=== PATIENT | male | born 1970 | race Caucasian/White ===

== ENCOUNTER 2020-11-06 01:27 | Emergency (ER) | payer OTHER, SELFPAY ==
[2020-11-06 01:35] VITALS: BP 143/89; PULSE 74; RESP 20; TEMP 36.6; O2SAT 97; BMI 32.5
[2020-11-06 02:09] LABS: Bacteria Urine None Seen; WBC Urine None Seen (0-5/HPF)
[2020-11-06 02:10] LABS: Appearance Urine UA CLEAR; Bilirubin Urine UA NEGATIVE (NEGATIVE); Color Urine UA YELLOW; Glucose Urine UA NEGATIVE (Negative); Ketones Urine UA 2+ (NEGATIVE); Leukocyte Esterase Urine UA NEGATIVE (NEGATIVE); Nitrite Urine UA NEGATIVE (Negative); Occult Blood Urine UA 3+ (Negative); Protein Urine UA TRACE (Negative); Specific Gravity Urine UA 1.015 (1.000-1.035); Urobilinogen Urine UA 0.2 E.U./dL (0.2)
[2020-11-06 02:15] LABS: Add Manual Diff / Slide Review NO; Basophils Absolute Auto 0 /uL (0-100); Basophils Percent Auto 0.2 % (0-2); Eosinophils Absolute Auto 0 /uL (0-450); Eosinophils Percent Auto 0.1 % (2-4); Hematocrit 44.8 % (41-53); Hemoglobin 15.4 g/dL (13.5-17.5); Lymphocytes Absolute Auto 800 /uL (1100-4500); Lymphocytes Percent Auto 8.5 % (25-40); Mean Corpuscular HGB Conc 34.4 % (30-36); Mean Corpuscular Hemoglobin 30.3 PG (26-34); Mean Corpuscular Volume 88.2 fL (80-100); Monocytes Absolute Auto 200 /uL (0-900); Monocytes Percent Auto 2.3 % (3-14); Neutrophils Absolute Auto 8400 /uL (1500-7000); Neutrophils Percent Auto 88.9 % (50-75); Platelet Count 269 X10^3/uL (150-400); Red Blood Cell Count 5.08 X10^6/uL (4.5-5.9); Red Cell Distribution Width 12.6 % (11.6-14.8); White Blood Cell Count 9.4 X10^3/uL (4.5-11.0)
[2020-11-06] MEDS: SODIUM CHLORIDE 0.9% 1,000 ML 1000 ML IV (02:16)
[2020-11-06] MEDS: HYDROMORPHONE 0.5 MG INJ IV (02:16)
[2020-11-06] MEDS: ONDANSETRON 4 MG/2 ML INJ IV (02:16)
[2020-11-06 02:22] LABS: Alanine Aminotransferase 56 IU/L (<50); Albumin Globulin Ratio 1.2 (1.0-2.8); Alkaline Phosphatase 75 U/L (38-126); Aspartate Aminotransferase 38 IU/L (17-59); BUN Creatinine Ratio 18.1 (6-22); Blood Urea Nitrogen 15 mg/dL (9-20); Calcium 10.1 mg/dL (8.4-10.2); Carbon Dioxide 26 mmol/L (22-32); Chloride 103 mmol/L (98-107); Estimated Glomerular Filt Rate > 60.0 mL/min (>60); Globulin 4.1 g/dL (1.7-4.1); Glucose 134 mg/dL (70-100); HEMOLYSIS < 15 (0-50); Lipase 79 U/L (23-300); Potassium 4.4 mmol/L (3.4-5.1); Sodium 139 mmol/L (137-145); Total Protein 9.1 g/dL (6.3-8.2)
[2020-11-06 02:30] LABS: Culture Indicated Urine Cult Not Indicated; RBC Urine 30-100/HPF (0-5/HPF)
[2020-11-06 02:33] LABS: COVID19 -Nasal RAPID Negative (Negative)
--- NOTE | 2020-11-06 05:14 | ED.ABDPAIN ---
HPI - Abdominal Pain General Chief Complaint: Abdominal Pain Stated Complaint: Believes he is having renal failure Time Seen by Provider: 11/06/20 02:21 Source: patient Mode of arrival: Ambulatory Limitations: no limitations History of Present Illness HPI narrative: 49-year-old gentleman with a history of prior acute renal failure presents with abdominal pain that initially felt like bloating secondary to gas than localized to the left flank and is now radiating down into the left groin. He denies any fevers, cough, chills, diarrhea, constipation. He has been nauseated with single episode of emesis. No chest pain, palpitations, dyspnea, headache or acute neurologic findings Related Data Home Medications Medication Instructions Recorded Confirmed omeprazole 20 mg capsule,delayed 20 mg PO QDAY #0 05/16/11 release melatonin 10 mg capsule 10 mg PO HSP PRN #0 04/20/17 Previous Rx's Medication Instructions Recorded clotrimazole-betamethasone 1 1 vitaliy TP TID #30 gm 09/09/ %-0.05 % topical cream oxycodone-acetaminophen 5 mg-325 1 - 2 tab PO Q6HP PRN #20 tab 04/20/17 mg tablet (Percocet) oxycodone-acetaminophen 5 mg-325 1 tab PO Q6H PRN #14 tab 11/06/20 mg tablet tamsulosin 0.4 mg capsule 0.4 mg PO DAILY #10 cap 11/06/20 Allergies Allergy/AdvReac Type Severity Reaction Status Date / Time ibuprofen [IBUPROFEN] AdvReac Severe RENAL Verified 11/06/20 01:35 FAILURE lactose [LACTOSE] AdvReac Intermediate Verified 11/06/20 01:35 Review of Systems Review of Systems Narrative: Remainder of complete review of systems is otherwise unremarkable except for that included in the HPI. Patient History Social History Smoking Status: Never smoker Smoking Status: Never smoker alcohol intake frequency: holidays/special occasions only Substance Use Type: marijuana Exam Narrative Exam Narrative: General: Healthy appearing, in moderate pain and unable to find a comfortable position.. Able to give a complete and coherent history. Well-nourished well-developed HEENT: Moist mucous membranes, normal sclera with reactive pupils, Respiratory: Lungs are clear to auscultation, no wheezing no rales no rhonchi. Full and symmetrical air movement Cardiac: Regular rate and rhythm no murmurs no bruits Abdomen: Soft, nontender, good bowel tones, left flank pain Skin: Warm and dry, no rashes Neurologic: Grossly neurologically intact with no obvious asymmetries or abnormalities Extremities: No trauma, well perfused Psych: Cooperative, appropriate insight and affect Initial Vital Signs Initial Vital Signs: Vital Signs Temperature 97.8 F 11/06/20 01:35 Pulse Rate 74 11/06/20 01:35 Respiratory Rate 20 11/06/20 01:35 Blood Pressure 143/89 H 11/06/20 01:35 Pulse Oximetry 97 11/06/20 01:35 Course Orders Ordered: ED Orders 11/06/20 01:45 COVID19 -Nasal swab/Pre-Proc Stat 11/06/20 01:50 Complete Blood Count AUTO DIFF Stat Comprehensive Metabolic Panel Stat Lipase Stat 11/06/20 02:05 Urinalysis and Microscopic Stat 11/06/20 05:21 CT kidney ureter bladder (KUB) Stat Discontinued Medications Hydromorphone HCl (Hydromorphone 0.5 Mg Inj) 0.5 mg IV NOW ONE Stop: 11/06/20 02:05 Last Admin: 11/06/20 02:16 Dose: 0.5 mg Documented by: YOBANI Sodium Chloride (Normal Saline 0.9%) 1,000 mls @ 1,000 mls/hr IV BOLUS ONE Stop: 11/06/20 03:03 Last Infusion: 11/06/20 04:21 Dose: 0 mls/hr Documented by: Admin: 11/06/20 02:16 Dose: 1,000 mls/hr Documented by: YOBANI Ketorolac Tromethamine (Ketorolac 30 Mg/Ml Vial) 15 mg IV NOW ONE Stop: 11/06/20 06:23 Ondansetron HCl (Ondansetron 4 Mg/2 Ml Inj) 4 mg IV NOW ONE Stop: 11/06/20 01:57 Last Admin: 11/06/20 02:16 Dose: 4 mg Documented by: YOBANI Oxycodone/Acetaminophen (Oxycodone/Apap 5/325 Prepack) 1 bottle MISC SEEINSTR ONE Stop: 11/06/20 06:26 Tamsulosin HCl (Tamsulosin 0.4 Mg Capsule) 0.4 mg PO NOW ONE Stop: 11/06/20 06:26 Vital Signs Vital signs: Vital Signs - 8 hr 11/06/20 01:35 Temperature 97.8 F Pulse Rate 74 Respiratory Rate 20 Blood Pressure 143/89 H Pulse Oximetry 97 MDM - Abdominal Pain Lab Data Result diagrams: 11/06/20 01:50 11/06/20 01:50 Labs: Lab Results 11/06/20 11/06/20 11/06/20 Range/Units 01:45 01:50 01:50 WBC 9.4 (4.5-11.0) X10^3/uL RBC 5.08 (4.5-5.9) X10^6/uL Hgb 15.4 (13.5-17.5) g/dL Hct 44.8 (41-53) % MCV 88.2 (80-100) fL MCH 30.3 (26-34) PG MCHC 34.4 (30-36) % RDW 12.6 (11.6-14.8) % Plt Count 269 (150-400) X10^3/uL Neut % (Auto) 88.9 H (50-75) % Lymph % (Auto) 8.5 L (25-40) % [place] % (Auto) 2.3 L (3-14) % Eos % (Auto) 0.1 L (2-4) % Baso % (Auto) 0.2 (0-2) % Neut # (Auto) 8400 H (3082-5442) /uL Lymph # (Auto) 800 L (4949-1454) /uL [place] # (Auto) 200 (0-900) /uL Eos # (Auto) 0 (0-450) /uL Baso # (Auto) 0 (0-100) /uL Sodium 139 (137-145) mmol/L Potassium 4.4 (3.4-5.1) mmol/L Chloride 103 (98-107) mmol/L Carbon Dioxide 26 (22-32) mmol/L BUN 15 (9-20) mg/dL Creatinine 0.83 (0.66-1.25) mg/dL Estimated GFR > 60.0 (>60) mL/min BUN/Creatinine Ratio 18.1 (6-22) Glucose 134 H (70-100) mg/dL Calcium 10.1 (8.4-10.2) mg/dL Total Bilirubin 1.0 (0.2-1.3) mg/dL AST 38 (17-59) IU/L ALT 56 H (<50) IU/L Alkaline Phosphatase 75 (38-126) U/L Total Protein 9.1 H (6.3-8.2) g/dL Albumin 5.0 (3.5-5.0) g/dL Globulin 4.1 (1.7-4.1) g/dL Albumin/Globulin Ratio 1.2 (1.0-2.8) Lipase 79 (23-300) U/L Urine Color Urine Appearance Urine pH (4.5-8.0) Ur Specific [place] (1.000-1.035) Urine Protein (Negative) Urine Glucose (UA) (Negative) g/dL Urine Ketones (NEGATIVE) Urine Occult Blood (Negative) Urine Nitrate (Negative) Urine Bilirubin (NEGATIVE) Urine Urobilinogen (0.2) E.U./dL Ur Leukocyte Esterase (NEGATIVE) Urine RBC (0-5/HPF) Urine WBC (0-5/HPF) Urine Bacteria (None) Ur Culture Indicated? SARS-CoV-2 (PCR) Negative (Negative) 11/06/20 Range/Units 02:05 WBC (4.5-11.0) X10^3/uL RBC (4.5-5.9) X10^6/uL Hgb (13.5-17.5) g/dL Hct (41-53) % MCV (80-100) fL MCH (26-34) PG MCHC (30-36) % RDW (11.6-14.8) % Plt Count (150-400) X10^3/uL Neut % (Auto) (50-75) % Lymph % (Auto) (25-40) % [place] % (Auto) (3-14) % Eos % (Auto) (2-4) % Baso % (Auto) (0-2) % Neut # (Auto) (1163-5501) /uL Lymph # (Auto) (0601-2126) /uL [place] # (Auto) (0-900) /uL Eos # (Auto) (0-450) /uL Baso # (Auto) (0-100) /uL Sodium (137-145) mmol/L Potassium (3.4-5.1) mmol/L Chloride (98-107) mmol/L Carbon Dioxide (22-32) mmol/L BUN (9-20) mg/dL Creatinine (0.66-1.25) mg/dL Estimated GFR (>60) mL/min BUN/Creatinine Ratio (6-22) Glucose (70-100) mg/dL Calcium (8.4-10.2) mg/dL Total Bilirubin (0.2-1.3) mg/dL AST (17-59) IU/L ALT (<50) IU/L Alkaline Phosphatase (38-126) U/L Total Protein (6.3-8.2) g/dL Albumin (3.5-5.0) g/dL Globulin (1.7-4.1) g/dL Albumin/Globulin Ratio (1.0-2.8) Lipase (23-300) U/L Urine Color Yellow Urine Appearance Clear Urine pH 7.0 (4.5-8.0) Ur Specific [place] 1.015 (1.000-1.035) Urine Protein Trace H (Negative) Urine Glucose (UA) Negative (Negative) g/dL Urine Ketones 2+ H (NEGATIVE) Urine Occult Blood 3+ H (Negative) Urine Nitrate Negative (Negative) Urine Bilirubin Negative (NEGATIVE) Urine Urobilinogen 0.2 (0.2) E.U./dL Ur Leukocyte Esterase Negative (NEGATIVE) Urine RBC 30-100/hpf H (0-5/HPF) Urine WBC None seen (0-5/HPF) Urine Bacteria None seen (None) Ur Culture Indicated? Cult not indicated SARS-CoV-2 (PCR) (Negative) Imaging Data CT KUB: Radiologist's Impression: 2 mm calculus within the distal left ureter associated with mild left hydronephrosis. Nonobstructing left renal calculi are identified as well. Left basilar pulmonary nodule. Right inguinal and umbilical hernias. Prasanth Ty MD MDM Narrative Medical decision making narrative: 49-year-old gentleman presents with left flank pain and corresponding 2 mm calculus in the left distal ureter appreciated on CT KUB. He responded nicely to fluids, Zofran and half a mg of Dilaudid. Once renal function was confirmed to be normal he was then given Toradol with significant relief. No evidence of recurrent renal abnormalities. Incidentally noted 5 mm nodule at the left lung base. He is given dose of Flomax with a prescription to continue until he passes this 2 mm stone. Pain is adequately controlled at this time. There is no evidence of infection, appendicitis, diverticulitis or other intra-abdominal abnormalities. Patient is safe for home discharge Discharge Plan Departure Patient Disposition: Home Clinical Impression: Left nephrolithiasis Instructions: DI for Kidney Stones Activity Restrictions/Additional Instructions: Thank you for coming in today You have a 2 mm kidney stone on the left side that is partially blocking your ureter, the 2 between your kidney and your bladder. This is the source of your pain. Using 400 mg of ibuprofen (2 [id number] pills) and 1 Tylenol every 6 hours can be very helpful in controlling pain. For severe pain using to ibuprofen and 1-2 Percocet would be appropriate. For nausea you can use Zofran Please strain your urine and take 0.4 mg of tamsulosin/Flomax daily until you note the kidney stone coming out. After it has passed, you no longer need the Flomax. If you have any signs of infection, pain that is uncontrolled with oral pain medications or new symptoms, please return to the ER Prescriptions: New tamsulosin 0.4 mg capsule 0.4 mg PO DAILY Qty: 10 RF: 0 oxycodone-acetaminophen 5-325 mg tablet 1 tab PO Q6H PRN (Reason: pain) Qty: 14 RF: 0 No Action omeprazole 20 MG capsule,delayed release(DR/EC) 20 mg PO QDAY Qty: 0 RF: 0 clotrimazole-betamethasone 15 GM cream 1 vitaliy TP TID Qty: 30 RF: 3 melatonin 10 MG capsule 10 mg PO HSP PRNQty: 0 RF: 0 oxycodone-acetaminophen [Percocet] 5 MG/325 MG tablet 1 - 2 tab PO Q6HP PRNQty: 20 RF: 0 Referrals: José Miguel Luo MD [Primary Care Provider] -
--- NOTE | 2020-11-06 05:21 | DI.CT.S_ITS ---
PROCEDURE: CT KIDNEY URETER BLADDER (KUB) INDICATIONS: left flank pain TECHNIQUE: Axial sections were acquired from the lung bases to the pubic symphysis. Coronal and sagittal reformats were performed. For radiation dose reduction, the following was used: automated exposure control, adjustment of mA and/or kV according to patient size. COMPARISON:None. FINDINGS: Image quality: Excellent. Lung bases: Unremarkable except for a thin band of linear radiodensity at the posterior left lower lobe measuring approximately 5 mm in dimension, with an appearance most likely representing focal mild alveolar scarring from prior inflammatory event.. Heart: No significant findings. URINARY: Right Kidney: No stones or hydronephrosis. Right Ureter: No hydroureter. Left Kidney: Mild hydronephrosis on the left, with several nonobstructive stones within the left collecting system measuring up to 3 x 5 mm, and it is noted that the mild urinary tract distension extends inferiorly Left Ureter: Mild hydroureter on the left to the pelvis level where a 2 mm calculus can be seen within the ureter. Bladder: Normal wall thickness. No stones. ABDOMEN: Liver: Unremarkable. Gallbladder: Unremarkable. Biliary ducts: Unremarkable. Pancreas: Unremarkable. Spleen: Unremarkable. Adrenal Glands: Unremarkable. Stomach and Bowel: Stomach, small bowel loops, and colon are unremarkable. Peritoneum: No abnormal intraperitoneal fluid. No free air. Ventral Wall: No hernia. Abdominal Nodes: No enlarged retroperitoneal or mesenteric lymph nodes. Vessels: Aorta and inferior vena cava are normal in size. PELVIS: Pelvic Organs: Unremarkable. Pelvic Nodes: Unremarkable. Miscellaneous: No left-sided inguinal hernias are seen but there is a fat containing superior inguinal canal mild herniation showing no evidence of incarceration or strangulation. A slight fat containing periumbilical hernia is present, as an incidental finding.. Bones: Unremarkable. IMPRESSION: Mild left hydronephrosis and hydroureter related to presence of a 2 mm distal left ureteral stone. Additional calculi are present which are nonobstructive at the collecting system of the left kidney. Right urinary tract is free of calculus. Incidental note is made of a right-sided inguinal canal hernia and periumbilical hernia, both comprised of fat rather than bowel.. No sign of incarceration or strangulation. Dictated by: Matthew Francisco M.D. on 11/06/2020 at 8:59 Approved by: Matthew Francisco M.D. on 11/06/2020 at 9:08
[2020-11-06] MEDS: TAMSULOSIN 0.4 MG CAPSULE PO (06:30)
[2020-11-06] MEDS: OXYCODONE/APAP 5/325 PREPACK 1 BOTTLE MISC (06:31)
[2020-11-06] MEDS: KETOROLAC 30 MG/ML VIAL 15 MG IV (06:32)
[2020-11-06 06:47] VITALS: BP 119/74; PULSE 70; RESP 17; O2SAT 95
== END 2020-11-06 06:49 | disposition home or self-care (01) ==
PROVIDERS: Emergency Provider Emergency Medicine; PCP Internal Medicine
DX: N20.0 Calculus of kidney (principal); R11.2 Nausea with vomiting, unspecified; Z20.822 Contact with and (suspected) exposure to COVID-19
CPT/HCPCS: 36415; 74176; 80053; 81001; 83690; 85025; 87635; 96361; 96374; 96375; 99284; C9803; J1170; J1885; J2405

== ENCOUNTER → 2021-01-08 15:54 | Outpatient (CLI) | payer OTHER, SELFPAY ==
[2021-01-08 17:00] LABS: Appearance Urine UA CLEAR; Bilirubin Urine UA NEGATIVE (NEGATIVE); Color Urine UA RED; Glucose Urine UA 1+ g/dL (Negative); Ketones Urine UA TRACE (NEGATIVE); Leukocyte Esterase Urine UA TRACE (NEGATIVE); Nitrite Urine UA POSITIVE (Negative); Occult Blood Urine UA 3+ (Negative); Protein Urine UA 2+ (Negative); Specific Gravity Urine UA 1.015 (1.000-1.035); Urobilinogen Urine UA >=8.0 E.U./dL (0.2); pH Urine UA 6.5 (4.5-8.0)
[2021-01-08 17:05] LABS: BUN Creatinine Ratio 15.9 (6-22); Blood Urea Nitrogen 14 mg/dL (9-20); Calcium 9.9 mg/dL (8.4-10.2); Carbon Dioxide 27 mmol/L (22-32); Chloride 106 mmol/L (98-107); Estimated Glomerular Filt Rate > 60.0 mL/min (>60); Glucose 105 mg/dL (70-100); HEMOLYSIS < 15 (0-50); Potassium 4.2 mmol/L (3.4-5.1); Sodium 141 mmol/L (137-145)
[2021-01-08 17:15] LABS: Bacteria Urine None Seen; Culture Indicated Urine Specimen Cultured; RBC Urine 5-10/HPF (0-5/HPF); WBC Urine 10-30/HPF (0-5/HPF)
== END ==
PROVIDERS: PCP Internal Medicine; Referring Provider Internal Medicine; Visit Provider Internal Medicine
DX: N39.0 Urinary tract infection, site not specified (principal); R35.0 Frequency of micturition; N20.0 Calculus of kidney; R31.9 Hematuria, unspecified
CPT/HCPCS: 36415; 80048; 81001; 87086

== ENCOUNTER 2021-01-11 14:46 | Emergency (ER) | payer OTHER, SELFPAY ==
[2021-01-11 14:55] VITALS: BP 129/84; PULSE 94; RESP 18; TEMP 36.1; O2SAT 96
--- NOTE | 2021-01-11 18:36 | ED.ABDPAIN ---
HPI - Abdominal Pain General Chief Complaint: Abdominal Pain Stated Complaint: Kidney stones Time Seen by Provider: 01/11/21 18:35 Source: patient Mode of arrival: Ambulatory Limitations: no limitations History of Present Illness HPI narrative: This is a 50-year-old male who comes emergency department with complaint of dysuria, frequency set sense of incomplete emptying. Patient states he has burning sensation in the penis and with urination at the end of the urethra. He denies any discharge. He denies any fevers. No chest pain, shortness of breath. No nausea or vomiting. No back or flank pain. Patient has not had any suprapubic plane. He denies any testicular pain. Patient does have a history of acute renal failure after taking a large amount of ibuprofen after dental procedure. He has had kidney stones in the past but states this feels much different. Related Data Home Medications Medication Instructions Recorded Confirmed diphenhydramine HCl 25 mg tablet 25 mg PO DAILY PRN tab 01/08/21 01/08/21 (Benadryl Allergy) omeprazole 20 mg tablet,delayed 20 mg PO DAILY 01/08/21 01/08/21 release Previous Rx's Medication Instructions Recorded tamsulosin 0.4 mg capsule 0.4 mg PO DAILY #10 cap 11/06/20 ciprofloxacin HCl 500 mg tablet 500 mg PO Q12H #20 tab 01/11/21 hydrocodone 5 mg-acetaminophen 325 1 tab PO QID PRN #5 tab 01/11/21 mg tablet Allergies Allergy/AdvReac Type Severity Reaction Status Date / Time ibuprofen [IBUPROFEN] AdvReac Severe RENAL Verified 01/08/21 14:46 FAILURE lactose [LACTOSE] AdvReac Intermediate Verified 01/08/21 14:46 Review of Systems Review of Systems ROS Unobtainable: All systems reviewed & are unremarkable except as noted in HPI and below Patient History Medical History Gastroesophageal reflux disease without esophagitis (05/23/11) Nephrolithiasis Right inguinal hernia (09/09/16) Social History Smoking Status: Current some day smoker Smoking Status: Current some day smoker alcohol intake frequency: holidays/special occasions only Substance Use Type: marijuana Exam Narrative Exam Narrative: GENERAL: Alert and oriented x three, male in mild distress. HEENT: Head normocephalic, atraumatic, EOMI, pupils reactive, face symmetric, moist mucous membranes NECK: Supple, full range of motion CARDIOVASCULAR: Regular rate and rhythm without murmurs, rubs or gallops. RESPIRATORY: Breath sounds equal bilaterally, no wheezes rales or rhonchi. ABDOMEN: Soft, nontender. Normoactive bowel sounds all 4 quadrants. No guarding or rebound, rigidity, no mass : No CVA tenderness EXTREMITIES: Normal range of motion, no clubbing or edema. Neurovascularly intact NEUROLOGICAL: Cranial nerves II through XII grossly intact. Moving all extremities SKIN: Warm, dry, no petechiae, no rashes or lesions. Initial Vital Signs Initial Vital Signs: Vital Signs Temperature 97.0 F L 01/11/21 14:55 Pulse Rate 94 H 01/11/21 14:55 Respiratory Rate 18 01/11/21 14:55 Blood Pressure 129/84 01/11/21 14:55 Pulse Oximetry 96 01/11/21 14:55 Course Orders Ordered: Discontinued Medications Hydrocodone Bitart/Acetaminophen (Hydrocodone/Acet 5/325 Tablet) 1 tab PO NOW ONE Stop: 01/11/21 19:09 Last Admin: 01/11/21 19:15 Dose: 1 tab Documented by: LUCAS Ciprofloxacin (Ciprofloxacin 250 Mg Tablet) 500 mg PO NOW ONE Stop: 01/11/21 19:07 Last Admin: 01/11/21 19:15 Dose: 500 mg Documented by: LUCAS Vital Signs Vital signs: Vital Signs - 8 hr 01/11/21 14:55 Temperature 97.0 F L Pulse Rate 94 H Respiratory Rate 18 Blood Pressure 129/84 Pulse Oximetry 96 MDM - Abdominal Pain Lab Data Labs: Lab Results 01/11/21 Range/Units 17:30 Ur Bilirubin Confirm Negative (Negative) Urine RBC 5-10/hpf H (0-5/HPF) Urine WBC 1-5/hpf (0-5/HPF) Urine Bacteria None seen (None) Ur Culture Indicated? Specimen cultured Micro UA Comment Pyridium present Point of care testing: Urine Dip Bedside Urine Glucose Negative Bedside Urine Bilirubin + 1 Bedside Urine Ketone - Negative Urine Specific [place] 1.030 Bedside Urine Occult Blood +/- Bedside Urine pH 6.0 Bedside Urine Protein +/- 15 Bedside Urine Urobilinogen +/- 1mg Bedside Urine Nitrite + Positive MDM Narrative Medical decision making narrative: This is a 50-year-old male comes in with complaint of dysuria, sense of urgency and incomplete emptying. He is nitrate positive on his urine. Patient does not have any abdominal or flank pain. He was sent by his primary care for CT but after discussion he and I both feel would be appropriate to cover with antibiotics and have him return if he has new or worsening symptoms. He has been afebrile. No nausea vomiting or other similar symptoms. His physician has already set him up with urology follow-up this . Discharge Plan Departure Patient Disposition: Home Clinical Impression: Acute UTI Instructions: DI for Urinary Tract Infection (UTI) Activity Restrictions/Additional Instructions: Follow up with the urologist at your scheduled appointment on . Today here urine is positive for nitrates and has been cultured. Take antibiotics until completely gone. Prescription sent to [facility]. You may take pain medication as prescribed. One tablet every 6 hours as needed for pain. You may continue home medications as prescribed. Return for fevers, new or worsening abdominal, back or flank pain, difficulty with urination, black or bloody stools, inability to urinate or other new or concerning symptoms. Prescriptions: New ciprofloxacin HCl 500 mg tablet 500 mg PO Q12H Qty: 20 RF: 0 hydrocodone-acetaminophen 5-325 mg tablet 1 tab PO QID PRN (Reason: pain) Qty: 5 RF: 0 No Action omeprazole 20 mg tablet,delayed release (DR/EC) 20 mg PO DAILY RF: 0 diphenhydramine HCl [Benadryl Allergy] 25 mg tablet 25 mg PO DAILY PRN (Reason: allergy symptoms) RF: 0 tamsulosin 0.4 mg capsule 0.4 mg PO DAILY Qty: 10 RF: 0 Referrals: José Miguel Luo MD [Primary Care Provider] -
[2021-01-11 18:37] LABS: Ictotest Urine Negative (Negative)
[2021-01-11 18:38] LABS: Bacteria Urine None Seen; RBC Urine 5-10/HPF (0-5/HPF); WBC Urine 1-5/HPF (0-5/HPF)
[2021-01-11 18:39] LABS: Culture Indicated Urine Specimen Cultured; Urine Comments PYRIDIUM PRESENT
[2021-01-11] MEDS: CIPROFLOXACIN 250 MG TABLET 500 MG PO (19:15)
[2021-01-11] MEDS: HYDROCODONE/ACET 5/325 TABLET 1 TAB PO (19:15)
== END 2021-01-11 19:45 | disposition home or self-care (01) ==
PROVIDERS: Emergency Medicine; Emergency Provider Emergency Medicine; PCP Internal Medicine
DX: N39.0 Urinary tract infection, site not specified (principal)
CPT/HCPCS: 81003; 81015; 87086; 99283

== ENCOUNTER → 2021-03-25 13:38 | Outpatient (CLI) | payer OTHER, SELFPAY ==
--- NOTE | 2021-03-25 13:41 | DI.RAD.S_ITS ---
PROCEDURE: XR KUB INDICATIONS: urinary calculi TECHNIQUE: One view of the abdomen acquired. COMPARISON: [facility], CT, CT KIDNEY URETER BLADDER (KUB), 11/06/2020, 5:27. FINDINGS: Surgical changes and devices: None. Bowel: Bowel gas pattern is normal. Soft tissues: Small 3-4 millimeter density projects over the left renal shadow which may represent small renal stone. No suspicious calcifications identified along the courses of the ureters or projecting over the right renal shadow. Visualized solid organ contours appear normal in size. Bones: No suspicious bony lesions. IMPRESSION: Possible 3-4 millimeter left renal stone. Dictated by: Georgiana Leyva MD, PhD on 03/25/2021 at 16:17 Approved by: Georgiana Leyva MD, PhD on 03/25/2021 at 16:19
[2021-03-25 15:12] LABS: Uric Acid 5.8 mg/dL (3.5-8.5)
[2021-03-26 07:36] LABS: Calcium 9.8 mg/dL (8.7-10.2); Parathyroid Hormone, Intact 33 pg/mL (15-65)
== END ==
PROVIDERS: PCP Internal Medicine; Referring Provider Specialist; Visit Provider Specialist
DX: Z87.442 Personal history of urinary calculi (principal); N20.0 Calculus of kidney
CPT/HCPCS: 36415; 74018; 82310; 83970; 84550